=== PATIENT | female | born 1970 | race Caucasian/White ===

== ENCOUNTER 2018-01-04 07:19 | Emergency (ER) | payer BC ==
[2018-01-04 07:45] VITALS: BP 121/93
[2018-01-04] MEDS ORDERED: Ibuprofen TAB* 600 MG PO ONE (08:20)
--- NOTE | 2018-01-04 08:24 | UC ---
Skin Complaint HPI - HPI Summary HPI Summary: C/O left ring finger redness swelling and pain. ? infection. Removed glue on nail. - History of Current Complaint Chief Complaint: UCSkin Time Seen by Provider: 01/04/18 08:04 Stated Complaint: LEFT RING FINGER COMPLAINT Hx Obtained From: Patient ?: No Onset/Duration: Sudden Onset, Lasting Days - 2, Worse Since - last night Timing: Constant Onset Severity: Mild Current Severity: Moderate Pain Intensity: 6 Location: Hand (Left) - distal ring finger. Character: Swelling, Pain, Redness Aggravating Factor(s): Touch Alleviating Factor(s): Nothing Associated Signs & Symptoms: Positive: Tenderness. Negative: Fever, Chills - Allergy/Home Medications Allergies/Adverse Reactions: Allergies Allergy/AdvReac Type Severity Reaction Status Date / Time No Known Allergies Allergy Verified 01/04/18 07:38 Home Medications: Home Medications Desvenlafaxine (NF) [Pristiq (NF)] 50 mg PO DAILY 01/04/18 [History Confirmed ] Review of Systems Skin: Other - redness Is Patient Immunocompromised?: No All Other Systems Reviewed And Are Negative: Yes PMH/Surg Hx/FS Hx/Imm Hx Previously Healthy: Yes - Surgical History Surgical History: Yes Surgery Procedure, Year, and Place: forehead lift. partial hysterectomy - Family History Known Family History: Negative: Diabetes - Social History Occupation: Employed Full-time Lives: With Family Alcohol Use: Rare Substance Use Type: None Smoking Status (MU): Never Smoked Tobacco - Immunization History Most Recent Tetanus Shot: unknown Physical Exam Triage Information Reviewed: Yes Appearance: Well-Appearing, Well-Nourished, Pain Distress - mild Vital Signs: Initial Vital Signs Temp 98.8 F 01/04/18 07:39 Pulse 65 01/04/18 07:39 Resp 18 01/04/18 07:39 BP 121/93 01/04/18 07:39 Pulse Ox 100 01/04/18 07:39 Vital Signs Reviewed: Yes Eyes: Positive: Conjunctiva Clear Neck exam: Normal Respiratory Exam: Normal Cardiovascular Exam: Normal Musculoskeletal Exam: Normal Neurological Exam: Normal Psychological Exam: Normal Skin: Positive: Other - erythema, swelling and tenderness around the distal 4th finger from just beyond the nail Course/Dx - Differential Diagnoses - Skin Complaint Differential Diagnoses: Abscess, Cellulitis, Impetigo, Lymphadenitis - Diagnoses Provider Diagnoses: Cellulitis left 4th finger Discharge - Sign-Out/Discharge Documenting (check all that apply): Discharge/Admit/Transfer - Discharge Plan Condition: Stable Disposition: HOME Prescriptions: Cephalexin CAP* [Keflex 500 CAP*] 500 mg PO QID #28 cap Fluconazole [Fluconazole 150 mg tab] 150 mg PO ONCE #1 tablet Patient Education Materials: Cellulitis (ED), Cephalexin (By mouth) Referrals: No Primary Care Phys,NOPCP [Primary Care Provider] - - Billing Disposition and Condition Condition: STABLE Disposition: HOME
== END 2018-01-04 08:41 | disposition home or self-care (01) ==
LOC: UCCORT 07:19
DX: L03.012 Cellulitis of left finger (principal)
CPT/HCPCS: 99202; A9270-GY; G0463

== ENCOUNTER 2018-02-25 20:00 | Emergency (ER) | payer BC ==
[2018-02-25 20:37] VITALS: BP 106/67
--- NOTE | 2018-02-25 20:52 | UC ---
Upper Extremity HPI - HPI Summary HPI Summary: Pt reports slipping on step ~ 1-2 hours ago, grabbing bilco door to basement, felt sudden onset of pain and burning in left upper arm, in tricep area. pain radiates to distal medial humerus, elbow. - History of Current Complaint Chief Complaint: UCUpperExtremity Stated Complaint: S/P FALL - LEFT ARM Time Seen by Provider: 02/25/18 20:37 Hx Obtained From: Patient ?: No Onset/Duration: Sudden Onset Severity Initially: Moderate Severity Currently: Mild Pain Intensity: 2 Character: Dull, Burning Aggravating Factor(s): Movement Alleviating Factor(s): Rest Associated Signs And Symptoms: Positive: Bruising Related History: Dominant Hand Right - Risk Factors Non-Orthopedic Risk Factor: Negative DVT Risk Factors: Negative Septic Arthritis Risk Factor: Negative Compartment Syndrome Risk Factors: Pain - Allergies/Home Medications Allergies/Adverse Reactions: Allergies Allergy/AdvReac Type Severity Reaction Status Date / Time No Known Allergies Allergy Verified 01/04/18 07:38 PMH/Surg Hx/FS Hx/Imm Hx Previously Healthy: Yes - Surgical History Surgical History: Yes Surgery Procedure, Year, and Place: forehead lift. partial hysterectomy - Family History Known Family History: Negative: Diabetes - Social History Occupation: Employed Full-time Lives: With Family Alcohol Use: Rare Substance Use Type: None Smoking Status (MU): Never Smoked Tobacco Have You Smoked in the Last Year: No - Immunization History Most Recent Tetanus Shot: unknown Review of Systems Constitutional: Negative Skin: Bruising, Other - abrasion Eyes: Negative ENT: Negative Respiratory: Negative Cardiovascular: Negative Gastrointestinal: Negative Genitourinary: Negative Motor: Negative Neurovascular: Negative Musculoskeletal: Myalgia Neurological: Negative Psychological: Negative Is Patient Immunocompromised?: No All Other Systems Reviewed And Are Negative: Yes Physical Exam Triage Information Reviewed: Yes Appearance: Well-Appearing Vital Signs: Initial Vital Signs Temp 98.5 F 02/25/18 20:31 Pulse 83 02/25/18 20:31 Resp 20 02/25/18 20:31 BP 106/67 02/25/18 20:31 Pulse Ox 99 02/25/18 20:31 Vital Signs Reviewed: Yes Eye Exam: Normal ENT Exam: Normal Dental Exam: Normal Neck exam: Normal Respiratory Exam: Normal Cardiovascular Exam: Normal Musculoskeletal Exam: Normal Musculoskeletal: Positive: Strength Intact, ROM Intact, No Edema, Other: - bruising noted medial, proximal humerus to distal medial humerus. upper arm is soft, nontender, full ROM, abrasion proximal medial humerus. Neurological Exam: Normal Psychological Exam: Normal Skin Exam: Other - abrasion Upper Extremity Course/Dx - Differential Dx/Diagnosis Differential Diagnosis/HQI/PQRI: Strain, Other - triceps tendon rupture Provider Diagnoses: left upper arm strain. abrasion Discharge - Sign-Out/Discharge Documenting (check all that apply): Patient Departure - Discharge Plan Condition: Stable Disposition: HOME Patient Education Materials: Muscle Strain (DC), Abrasion (ED), Musculoskeletal Pain (ED) Referrals: [facility] [Outside] Catracho Manuel MD [Medical Doctor] - As Soon As Possible No Primary Care Phys,NOPCP [Primary Care Provider] - - Billing Disposition and Condition Condition: STABLE Disposition: Home
== END 2018-02-25 21:02 | disposition home or self-care (01) ==
LOC: UCCORT 20:00
DX: S40.212A Abrasion of left shoulder, initial encounter (principal); M79.622 Pain in left upper arm; W01.0XXA Fall on same level from slipping, tripping and stumbling without subsequent striking against object, initial encounter; Y92.89 Other specified places as the place of occurrence of the external cause
CPT/HCPCS: 99211; G0463